=== PATIENT | male | born 1950 | race Two or more races ===

== ENCOUNTER → 2022-05-27 | Outpatient (CLI) | payer MEDICARE, MEDICAID | END | disposition home or self-care (01) | LOC: Rad HDHVI 10:39 | PROVIDERS: ATTEND Internal Medicine Cardiovascular Disease | DX: I34.0 Nonrheumatic mitral (valve) insufficiency (principal); R06.02 Shortness of breath | CPT/HCPCS: 93306 ==

== ENCOUNTER → 2024-12-21 | Outpatient (CLI) | payer MEDICARE, MEDICAID ==
[2024-12-21] MEDS: CYANOCOBALAMIN (B-12) 1000 MCG/1 ML VIAL ONE (10:25)
[2024-12-21] MEDS: IRON SUCROSE 20 mg/ml 10ml VIAL IV ONE (10:25)
[2024-12-21 11:10] VITALS: BP 128/71; PULSE 90; RESP 17; O2SAT 97
[2024-12-21] MEDS: IRON SUCROSE COMPLEX 110 ML IV ONE (11:26)
[2024-12-21] MEDS: CYANOCOBALAMIN (B-12) 1000 MCG/1 ML VIAL IM ONE (11:28)
[2024-12-21 12:30] VITALS: BP 117/77; PULSE 88; RESP 18; O2SAT 97
== END | disposition home or self-care (01) ==
LOC: CHF HDHVI 11:14
PROVIDERS: ATTEND Internal Medicine Cardiovascular Disease
DX: D50.0 Iron deficiency anemia secondary to blood loss (chronic) (principal); K92.2 Gastrointestinal hemorrhage, unspecified; D51.8 Other vitamin B12 deficiency anemias; J44.9 Chronic obstructive pulmonary disease, unspecified; I10 Essential (primary) hypertension; E11.9 Type 2 diabetes mellitus without complications; K27.0 Acute peptic ulcer, site unspecified, with hemorrhage
CPT/HCPCS: 96365; 96372; G0463; J1756; J3420

== ENCOUNTER → 2025-01-24 | Outpatient (CLI) | payer MEDICARE, MEDICAID ==
[~2025-01-24] VITALS: Ht 172.7 cm; Wt 88.5 kg
[~2025-01-24] MED LIST: ADENOSINE 74 MG in GIVE UN-DILUTED 0 ML IV ONE; ADENOSINE 90 MG/30 ML INJ IV ONE
--- NOTE | 2025-01-28 13:51 | DVHSR ---
APPROVED REPORT EXAM: Two-dimensional and M-mode echocardiogram with Doppler and color Doppler. DIMENSIONS LVDd4.4 (3.8-5.7cm)LA (2D)3.7 (1.9-4.0cm)Aortic Root3.8 (2.0-3.7cm) LVDs3.3 (2.5-4.0cm)LA (MM) (1.9-4.0cm)Aortic Cusp Exc1.8 (1.5-2.0cm) EF (%) 55.0 (55-70%)Rt. Atrium3.9 (1.9-4.0cm)Asc. Aorta cm IVSd1.0 (0.7-1.1cm)RV (D)3.2 (1.8-2.4cm) PWd1.0 (0.7-1.1cm) Mitral Valve MitralMitral Stenosis E wave1.12m/sMV Mean GR.mmHg A wave0.98m/sMV Peak GR.mmHg E/A ratio1.12D MVAcm2 DECEL [id number] 1/2 [place] Aortic Valve Aortic ValveAortic Stenosis V11.11m/Lily Mean GR.3mmHg V21.21m/Lily Peak GR.6mmHg LVOT Diameter1.9 (1.8-2.4cm)Doppler AVA2.60cm2 Pulmonic Valve V21.14m/s LEFT VENTRICLE The left ventricle is normal size. The left ventricle is normal in structure and function. The Ejection Fraction is within normal limits. RIGHT VENTRICLE The right ventricle is normal size. ATRIA The left atrial size is normal. The right atrium size is normal. The interatrial septum is intact with no evidence for an atrial septal defect. MITRAL VALVE The mitral valve is normal in structure and function. Mitral regurgitation is mild. PULMONIC VALVE The pulmonic valve is not well visualized. TRICUSPID VALVE The tricuspid valve is grossly normal. There is trace tricuspid regurgitation. AORTIC VALVE The aortic valve opens well. The aortic valve is mildly sclerotic. No aortic regurgitation is present. GREAT VESSELS The aortic root is normal size. PERICARDIAL EFFUSION There is no pericardial effusion. Other Information Technically limited study due to body habitus. Conclusion EF 55% MILD MR
== END | disposition home or self-care (01) ==
LOC: Rad HDHVI 13:32
PROVIDERS: ATTEND Internal Medicine Cardiovascular Disease
DX: I08.0 Rheumatic disorders of both mitral and aortic valves (principal); R07.9 Chest pain, unspecified; I11.0 Hypertensive heart disease with heart failure; I50.33 Acute on chronic diastolic (congestive) heart failure; J96.90 Respiratory failure, unspecified, unspecified whether with hypoxia or hypercapnia; E78.00 Pure hypercholesterolemia, unspecified; R00.0 Tachycardia, unspecified; R07.89 Other chest pain
CPT/HCPCS: 78452; 93017; 93306; A9500; J0153; 93005; 96374; 96375

== ENCOUNTER → 2025-02-07 | Outpatient (CLI) | payer MEDICARE, MEDICAID | END | disposition home or self-care (01) | LOC: Rad HDHVI 07:55 | PROVIDERS: ATTEND Internal Medicine Cardiovascular Disease | DX: M79.669 Pain in unspecified lower leg (principal); R60.9 Edema, unspecified | CPT/HCPCS: 93925; 93970 ==

== ENCOUNTER → 2025-02-21 | Outpatient (CLI) | payer MEDICARE, MEDICAID ==
[~2025-02-21] MED LIST changes: -ADENOSINE 74 MG in GIVE UN-DILUTED 0 ML IV ONE; -ADENOSINE 90 MG/30 ML INJ IV ONE; +LISI40TA16 PO; +PANT40TA2 PO; +POTA-220 PO
[2025-02-21 12:42] VITALS: BP 130/70; PULSE 88; RESP 16; O2SAT 94
[2025-02-21 13:01] VITALS: BP 141/72; PULSE 80; RESP 16; O2SAT 94
--- NOTE | 2025-02-21 13:33 | DVH ---
EXAM: XY CHEST TWO VIEWS ROUTINE CLINICAL HISTORY: Pain. COMPARISON: CXR2 on DOS: 05/15/22, CHEST TWO VIEWS ROUTINE on DOS: 05/15/22 TECHNIQUE: Frontal and lateral view of the chest was obtained FINDINGS: Lines and Tubes: None Lungs: No focal consolidation. Pleura: No effusion. No pneumothorax. Cardiomediastinal contours: Unremarkable. Atherosclerotic vascular calcifications of the thoracic ao rta are noted. Bones: No acute osseous abnormality. IMPRESSION: No acute cardiopulmonary disease.
== END | disposition home or self-care (01) ==
LOC: Rad HDHVI 12:33
PROVIDERS: ATTEND Internal Medicine Cardiovascular Disease
DX: Z01.818 Encounter for other preprocedural examination (principal); I70.0 Atherosclerosis of aorta; I73.9 Peripheral vascular disease, unspecified
CPT/HCPCS: 71046; 93005; G0463

== ENCOUNTER 2025-04-07 07:29 | Day surgery (SDC) | payer MEDICARE, MEDICAID ==
[2025-04-06 15:23] LABS: Basophils # (auto) 0 10 ^3/uL (0-0.2); Basophils % (auto) 0.6 % (0.0-2.0); Eosinophils # (auto) 0.4 10 ^3/uL (0-0.8); Eosinophils % (auto) 8.1 % (0.0-7.0); Hematocrit 35.4 % (41.0-53.0); Hemoglobin 12.3 g/dL (13.5-17.5); Lymphocytes % (auto) 17.7 % (10.0-50.0); Mean Corpuscular Hemoglobin 34.3 pg (28.0-32.0); Mean Corpuscular Hgb Conc. 34.8 g/dL (32.0-36.0); Mean Corpuscular Volume 98.5 fL (80.0-100.0); Monocytes # (auto) 0.6 10 ^3/uL (0-1.3); Monocytes % (auto) 11.1 % (0.0-12.0); Neutrophils # (auto) 3.4 10 ^3/uL (1.6-8.6); Neutrophils % (auto) 62.5 % (37.0-80.0); Nucleated Red Blood Cells % 0.1 %; Platelet Count (auto) 195 10^3/uL (140-450); Red Blood Cells 3.59 10^6/uL (4.5-5.90); Red Cell Distribution Width 14.3 % (11.8-14.3); White Blood Cell 5.5 10^3/uL (4.4-10.8)
[2025-04-06 15:24] LABS: INR 1.03 (0.9-1.15); Partial Thromboplastin Time 25.9 SEC (24.5-34.5); Prothrombin Time 10.9 sec (9.3-11.8)
[2025-04-06 16:24] LABS: Alanine Aminotransferase 14 U/L (7-40); Albumin 4.1 g/dL (3.2-4.8); Alkaline Phosphatase 74 U/L (46-116); Anion Gap 10 (5-15); Aspartate Aminotransferase 21 U/L (<34); BUN/Creatinine Ratio 20.2 (10.0-20.0); Bilirubin, Total 0.4 mg/dL (0.2-1.0); Blood Urea Nitrogen 20 mg/dL (9-23); Calcium 9.3 mg/dL (8.7-10.4); Carbon Dioxide 23 mmol/L (20-31); Glucose 81 mg/dL (74-106); Potassium 4.3 mmol/L (3.5-5.1); Sodium 144 mmol/L (136-145)
[2025-04-06 16:30] LABS: Chloride 111 mmol/L (98-107)
[~2025-04-07] VITALS: Ht 172.7 cm; Wt 90.3 kg
[2025-04-07] VITALS (8 sets, daily range): BP systolic 102–117; BP diastolic 62–73; PULSE 59–67; RESP 13–18; TEMP 98.1; O2SAT 96–100
[~2025-04-07 07:29] MED LIST changes: +ALPR1TAB2 PO; +BUMEX2MG PO; +FERR325T24 PO; +LEVO25TA6 PO; +LISI20TA56 PO; -LISI40TA16 PO; +TRAM50TA2 PO
[2025-04-07] MEDS: IOHEXOL 350 MG/ML 100ML IJ ONE ×2 (09:18→09:23)
[2025-04-07] MEDS: ANGIOMAX 250 MG VIAL IV ONE (09:22)
[2025-04-07] MEDS: MIDAZOLAM HCL 2MG/2ML 2ml VIAL (1mg/ml) ONE (09:22)
[2025-04-07] MEDS: fentaNYL CITRATE 100 MCG/2 ML VL ONE (09:22)
[2025-04-07] MEDS: LIDOCAINE 2%HCL (LOCAL ANESTH.) INJ 20ML MDV ONE (09:23)
[2025-04-07] MEDS: SODIUM CHL 0.9% 0 ML ONE (09:23)
--- NOTE | 2025-04-07 10:15 | DVHOP ---
DATE OF SURGERY: 04/07/2025 PROCEDURES PERFORMED: * Selective left and right coronary angiography. * Ventriculogram. * Right iliac angiography. * FFR of the left anterior descending artery. * Conscious sedation. DESCRIPTION OF PROCEDURE: The patient was prepped and draped in a sterile condition. A 1% Xylocaine used to anesthetize the right groin. Using the Cook needle, the right femoral artery was engaged via Seldinger technique. A 6-Liberian sheath in the right femoral artery. Using a 6-Liberian JL4 catheter and a 6-Liberian JR4 catheter, selective left and right coronary angiography was performed. Using 6-Liberian pigtail catheter, ventriculogram was done. The right femoral arteriotomy site was closed using the Angio-Seal device following angiography. FFR of the proximal to mid LAD was performed. Conscious sedation was given. RESULTS: At this time: * Left main was patent. * The left anterior descending artery had mild intimal irregularity. * The FFR of the mid portion of the LAD was greater than 0.95, so has inconsequential intimal irregularity. * Circumflex artery mild intimal irregularity without any flow restrictive lesion. * Right coronary artery mild intimal irregularity without any flow restrictive lesion. * Left ventricular function showed mild global hypokinesis with an estimated EF of 45%. LVEDP of 15-16 mmHg with no gradient across the aortic valve. CONCLUSION: Thus, the patient with mild intimal irregularity, mild decrease in left ventricular ejection fraction around 45%. At this time, no catheter-based or surgical intervention is warranted. Conservative medical management. We will continue to follow the patient. Jaspal Grey MD SA/EKT TID: [id number] RECEIPT: [id number]
--- NOTE | 2025-04-07 10:42 | DVHDS ---
DATE OF DISCHARGE: 04/07/2025 DISCHARGE DIAGNOSIS: The patient with mild decrease in left ventricular ejection fraction by ventriculogram, EF around 45%. LVEDP is around 15-16 mmHg. No significant coronary artery disease was demonstrated. HOSPITAL COURSE: At this time, conservative medical management. CHF protocol for systolic dysfunction should be implemented. Aggressive blood pressure management should be initiated as well. Stable at the time of discharge. DISPOSITION: Home. ACTIVITY: As instructed. DIET: 2 g sodium diet. Jaspal Grey MD SA/DIANE/LESTER TID: [id number] RECEIPT: [id number]
== END 2025-04-07 13:04 | disposition home or self-care (01) ==
LOC: CATH 07:29
PROVIDERS: ATTEND Internal Medicine Cardiovascular Disease
DX: I25.10 Atherosclerotic heart disease of native coronary artery without angina pectoris (principal); R79.1 Abnormal coagulation profile; Z79.899 Other long term (current) drug therapy; Z87.891 Personal history of nicotine dependence
CPT/HCPCS: 0523T; 36415; 80053; 85025; 85610; 85730; 93458; C1760; C1894; J1644; J2250; J3010; J7040; Q9967; 99152